=== PATIENT | male | born 1955 | race Caucasian/White ===

== ENCOUNTER 2018-03-03 09:14 | Emergency (ER) | payer OTHER ==
[~2018-03-03] VITALS: Ht 185.4 cm; Wt 77.1 kg
[2018-03-03 09:23] VITALS: BP 140/80
--- NOTE | 2018-03-03 09:53 | NUR ---
Dr. De La Vega evaluating patient at bedside.
--- NOTE | 2018-03-03 09:59 | NUR ---
patient came in for a medication refill for gabbapentin for chronic pain to lower back. patient has a history of untreated Hep. C, HTN and smoking. pt stated that he has been obor for a long time. Pt is currently taking ibuprofin, gabbapentin, HCTZ, benazpril and renatidine and tramadol. pt statedd that he was on pain management but just moved out here. Addendum: 03/03/18 at 1001 by MED1 patient came in for a medication refill for gabbapentin for chronic pain to lower back. patient has a history of untreated Hep. C, HTN and smoking. pt stated that he has been sobor for a long time. Pt is currently taking ibuprofin, gabbapentin, HCTZ, benazpril and renatidine and tramadol. pt stated that he was on pain management but just moved out here.
[2018-03-03 10:38] VITALS: BP 128/84
--- NOTE | 2018-03-03 10:39 | NUR ---
patient was discharged and was given medication prescription for chronic back pain. patient recieved prescription for tramadol and gabapentin. patient recieved literature on chronic pain management. patient understood in home care instructions and medication prescriptions. patient was d/c ambulatory.
== END 2018-03-03 10:39 | disposition home or self-care (01) ==
LOC: MED 09:14
DX: G89.29 Other chronic pain (principal); Z76.0 Encounter for issue of repeat prescription
CPT/HCPCS: 99283

== ENCOUNTER 2018-04-06 10:01 | Emergency (ER) | payer OTHER ==
[~2018-04-06] VITALS: Ht 185.4 cm; Wt 79.4 kg
[2018-04-06 10:06] VITALS: BP 142/95
--- NOTE | 2018-04-06 10:11 | NUR ---
PT AMBULATES TO BED 9
--- NOTE | 2018-04-06 10:20 | NUR ---
PATIENT PRESENTS TO ED WITH C/O LOWER BACK PAIN AND LT LOWER EXTREMITY PAIN;SWELLING AND REDNESS NOTED ON LT LOWER EXTREMITY.DENIES N/V/D; SKIN IS PINK/WARM/DRY; AAOX4 WITH EVEN AND STEADY GAIT; LUNGS CLEAR BL; HR EVEN AND REGULAR; PT DENIES ANY FEVER, CP, SOB, OR COUGH AT THIS TIME; PATIENT POSITIONED FOR COMFORT; HOB ELEVATED; BEDRAILS UP X2; BED DOWN. ER MD MADE AWARE OF PT STATUS.
[2018-04-06] MEDS ORDERED: KETOROLAC 30 MG/ML VIAL IM ONE (10:40)
[2018-04-06 11:08] VITALS: BP 138/89
--- NOTE | 2018-04-06 11:09 | NUR ---
Patient discharged with v/s stable. Written and verbal after care instructions given and explained. Patient alert, oriented and verbalized understanding of instructions. Ambulatory with steady gait. All questions addressed prior to discharge. ID band removed. Patient advised to follow up with PMD. Rx of TRAMADOL, MEDROL, MOTRIN given. Patient educated on indication of medication including possible reaction and side effects. Opportunity to ask questions provided and answered.
== END 2018-04-06 11:09 | disposition home or self-care (01) ==
LOC: MED 10:01
DX: G89.29 Other chronic pain (principal); M54.32 Sciatica, left side; Z76.0 Encounter for issue of repeat prescription; I10 Essential (primary) hypertension; Z98.890 Other specified postprocedural states
CPT/HCPCS: 96372; 99283; J1885

== ENCOUNTER 2018-06-01 08:59 | Emergency (ER) | payer MEDICAID, OTHER ==
[~2018-06-01] VITALS: Ht 185.4 cm; Wt 77.1 kg
[2018-06-01 09:02] VITALS: BP 109/84
[2018-06-01 09:31] VITALS: BP 109/84
== END 2018-06-01 09:31 | disposition home or self-care (01) ==
LOC: MED 08:59
DX: H61.21 Impacted cerumen, right ear (principal); I10 Essential (primary) hypertension; F17.210 Nicotine dependence, cigarettes, uncomplicated
CPT/HCPCS: 99281

== ENCOUNTER 2018-10-24 11:02 | Emergency (ER) | payer MEDICAID, OTHER ==
[~2018-10-24] VITALS: Ht 185.4 cm; Wt 78.2 kg
[2018-10-24 11:25] VITALS: BP 115/81
--- NOTE | 2018-10-24 12:30 | NUR ---
FLU A&B SWAB SAMPLE TAKEN AND GIVEN TO COLLAR SEPARATOR PER DR ESTRADA'S ORDER. [facility]
--- NOTE | 2018-10-24 12:43 | NUR ---
PT TO BED 3 AT THIS TIME.
--- NOTE | 2018-10-24 12:47 | NUR ---
63 Y/O M BIB HIS BEST FRIEND WITH C/O COUGH, CONGESTION AND WEAK FOR 2 DAYS. PT DENIES N/V/D; SKIN IS INTACT, PINK/WARM/DRY; AAOX4, PERRL, WITH EVEN AND STEADY GAIT; LUNGS CLEAR BL, BREATHING UNLABORED; HR EVEN AND REGULAR, BL PERIPHERAL PULSES PRESENT; BS ACTIVE X4, NO TENDERNESS TO PALPATION, NO HEPATOSPLENOMEGALLY PALPATED, RESONANT TO PERCUSSION; PT DENIES ANY FEVER, CP, SOB AT THIS TIME; PT STATES 6/10 PAIN AT THIS TIME; VSS; PATIENT POSITIONED FOR COMFORT; HOB ELEVATED; BEDRAILS UP X2; BED DOWN. HX; HTN-- RX; HYDROCHLOROTHIAZIDE, BAGAPENTIN, NAPROXYN
--- NOTE | 2018-10-24 14:21 | NUR ---
PT SITTING IN BED WITH LEGS UNCROSSED, RR EVEN/UNLABORD. NO DISTRESS NOTED.
--- NOTE | 2018-10-24 15:05 | NUR ---
DR. ESTRADA AT BEDSIDE EVALUATING.
[2018-10-24 15:27] VITALS: BP 112/85
--- NOTE | 2018-10-24 15:27 | NUR ---
Patient discharged with v/s stable. Written and verbal after care instructions given and explained. Patient alert, oriented and verbalized understanding of instructions. Ambulatory with steady gait. All questions addressed prior to discharge. ID band removed. Patient advised to follow up with PMD. Rx of PREDNISONE, MOTRIN WERE given. Patient educated on indication of medication including possible reaction and side effects. Opportunity to ask questions provided and answered.
== END 2018-10-24 15:27 | disposition home or self-care (01) ==
LOC: MED 11:02
DX: R05 Cough (principal); I10 Essential (primary) hypertension
CPT/HCPCS: 36415; 71046; 87804; 99284

== ENCOUNTER 2018-11-05 15:41 | Emergency (ER) | payer OTHER ==
[~2018-11-05] VITALS: Ht 188 cm; Wt 80.8 kg
[2018-11-05 15:50] VITALS: BP 120/84
--- NOTE | 2018-11-05 15:53 | NUR ---
PATIENT PRESENTS TO ED WITH C/O LEFT FOOT PAIN; ABSCESS NOTED ON LEFT FOOT; RENDESS AND MILD SWELLING NOTED. PT STATES FOOT IS NUMB AND HE HAS ALWAYS APROBLEM WITH HIS LEFT FOOT;AAOX4 WITH EVEN AND STEADY GAIT; LUNGS CLEAR BL; HR EVEN AND REGULAR; PT DENIES ANY FEVER;PATIENT STATES PAIN OF 7/10 AT THIS TIME;PATIENT POSITIONED FOR COMFORT; HOB ELEVATED; BEDRAILS UP X2; BED DOWN. ER MD MADE AWARE OF PT STATUS.
--- NOTE | 2018-11-05 16:03 | NUR ---
LEONILA MAYER AT BEDSIDE.
[2018-11-05] MEDS ORDERED: CLINDAMYCIN 150 MG CAP PO ONE (16:15)
[2018-11-05] MEDS ORDERED: SULFAMETH/TRIMETH DS 800/160MG 1 TAB PO ONE (16:15)
[2018-11-05 16:40] VITALS: BP 120/84
--- NOTE | 2018-11-05 16:40 | NUR ---
Patient discharged with v/s stable. Written and verbal after care instructions given and explained. Patient alert, oriented and verbalized understanding of instructions. Ambulatory with steady gait. All questions addressed prior to discharge. ID band removed. Patient advised to follow up with PMD. Rx of BACTRIM DS AND CLINDAMYCIN given. Patient educated on indication of medication including possible reaction and side effects. Opportunity to ask questions provided and answered.
== END 2018-11-05 16:40 | disposition home or self-care (01) ==
LOC: MED 15:41
DX: L03.116 Cellulitis of left lower limb (principal); I10 Essential (primary) hypertension
CPT/HCPCS: 99283

== ENCOUNTER 2019-01-07 10:10 | Emergency (ER) | payer OTHER ==
[~2019-01-07] VITALS: Ht 185.4 cm; Wt 79.4 kg
[2019-01-07 10:14] VITALS: BP 127/96
--- NOTE | 2019-01-07 10:22 | NUR ---
Patient ambulated to bed 12. RN evaluating patient at bedside.
--- NOTE | 2019-01-07 10:29 | NUR ---
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 DENIES N/V/D; SKIN IS PINK/WARM/DRY; AAOX4 WITH EVEN AND STEADY GAIT; LUNGS CLEAR BL; HR EVEN AND REGULAR; PT DENIES ANY FEVER, CP, SOB, OR COUGH AT THIS TIME; PATIENT STATES PAIN OF 0/10 AT THIS TIME; VSS; PATIENT POSITIONED FOR COMFORT; HOB ELEVATED; BEDRAILS UP X2; BED DOWN. ER MD MADE AWARE OF PT STATUS.
[2019-01-07] MEDS ORDERED: NACL 0.9% 1,500 ML IV SCH (11:21)
[2019-01-07 12:07] LABS: BASOPHILS % (AUTO) 0.5 % (0.0-2.0); EOSINOPHILS % (AUTO) 1.5 % (0.0-4.0); HEMATOCRIT 35.8 % (36-52); HEMOGLOBIN 12.1 g/dL (12.0-18.0); LYMPHOCYTES # (AUTO) 1.4 K/uL (2.0-11.5); LYMPHOCYTES % (AUTO) 43.8 % (20.5-51.1); MEAN CORPUSCULAR HEMOGLOBIN 33 pg (27-31); MEAN CORPUSCULAR HGB CONC 34 g/dL (33-37); MEAN CORPUSCULAR VOLUME 96.5 fL (80-94); MONOCYTES # (AUTO) 0.2 K/uL (0.8-1.0); MONOCYTES % (AUTO) 6.6 % (1.7-9.3); NEUTROPHILS # (AUTO) 1.5 K/uL (1.8-7.7); NEUTROPHILS % (AUTO) 47.6 % (42.2-75.2); PLATELET COUNT (AUTO) 219 K/uL (140-450); RED BLOOD CELL COUNT(AUTO) 3.71 MIL/uL (4.20-6.10); WHITE BLOOD COUNT (AUTO) 3.2 K/uL (4.8-10.8)
[2019-01-07 12:18] LABS: ANION GAP 15.1 (8-16); CARBON DIOXIDE 24.8 mmol/L (21-32); POTASSIUM 3.9 mmol/L (3.5-5.1)
[2019-01-07 12:30] LABS: TOTAL BILIRUBIN 0.4 mg/dL (0.0-1.0)
[2019-01-07 12:36] LABS: MAGNESIUM 1.9 mg/dL (1.8-2.4); URIC ACID 5.1 mg/dL (2.6-7.2)
[2019-01-07 14:15] LABS: BARBITURATE, URINE NEG. ng/ml (NEG <=200); BENZODIAZEPINE, URINE NEG. ng/mL (NEG <=200); CANNABINOID, URINE POS. ng/mL (NEG <=50); COCAINE, URINE NEG. ng/mL (NEG <=300); OPIATE, URINE NEG. ng/mL (NEG <=2000); PHENCYCLIDINE SCREEN,URINE NEG. ng/mL (NEG <=25)
[2019-01-07 14:17] LABS: APPEARANCE,URINE CLEAR (CLEAR); BILIRUBIN,URINE NEGATIVE (NEGATIVE); BLOOD, URINE NEGATIVE (NEGATIVE); COLOR,URINE YELLOW (YELLOW); LEUKOCYTE ESTERASE ,URINE NEGATIVE (NEGATIVE); NITRITE, URINE NEGATIVE (NEGATIVE); PH,URINE 6.5 (5.0-9.0); UGLUCOSE NEGATIVE (NEGATIVE)
[2019-01-07 14:55] VITALS: BP 112/58
--- NOTE | 2019-01-07 14:55 | NUR ---
Patient discharged with v/s stable. Written and verbal after care instructions given and explained. Patient alert, oriented and verbalized understanding of instructions. Ambulatory with steady gait. All questions addressed prior to discharge. Patient advised to follow up with PMD. Rx of Albuterol given. Patient educated on indication of medication including possible reaction and side effects. Opportunity to ask questions provided and answered.
== END 2019-01-07 14:45 | disposition home or self-care (01) ==
LOC: MED 10:10
DX: E86.0 Dehydration (principal); J44.9 Chronic obstructive pulmonary disease, unspecified; J98.11 Atelectasis; F17.210 Nicotine dependence, cigarettes, uncomplicated; I10 Essential (primary) hypertension
CPT/HCPCS: 36415; 36600; 71045; 80053; 80305; 81003; 82803; 83735; 83880; 84484; 84550; 85025; 93005; 96360; 99284; G0482; J7030; Q0092

== ENCOUNTER 2019-07-19 11:50 | Emergency (ER) | payer OTHER ==
[~2019-07-19] VITALS: Ht 185.4 cm; Wt 79.4 kg
[2019-07-19 11:51] VITALS: BP 119/70
[2019-07-19] MEDS ORDERED: KETOROLAC 60 MG/2 ML VIAL IM ONE (12:00)
--- NOTE | 2019-07-19 12:00 | NUR ---
Patient transferred to bed 4 via wheelchair by triage nurse. RN evaluating patient at bedside.
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
--- NOTE | 2019-07-19 12:05 | NUR ---
technical buyer at bedside.
--- NOTE | 2019-07-19 12:22 | NUR ---
Dr. Capps evaluating patient at bedside.
--- NOTE | 2019-07-19 12:39 | NUR ---
PATIENT STATED THE PAIN MEDICATION DID NOT WORK, STILL HARD TO WORK, ER MD MADE AWARE.
[2019-07-19 12:55] VITALS: BP 119/70
--- NOTE | 2019-07-19 12:55 | NUR ---
Patient discharged with v/s stable. Written and verbal after care instructions given and explained. Rx of KEFLEX given. Patient educated on indication of medication including possible reaction and side effects. All questions addressed prior to discharge. ID band removed. Patient advised to follow up with PMD.
== END 2019-07-19 12:55 | disposition home or self-care (01) ==
LOC: MED 11:50
DX: L03.116 Cellulitis of left lower limb (principal); I10 Essential (primary) hypertension; F17.200 Nicotine dependence, unspecified, uncomplicated; Z98.890 Other specified postprocedural states
CPT/HCPCS: 73630; 96372; 99283; J1885; Q0092

== ENCOUNTER 2019-08-01 16:48 | Emergency (ER) | payer OTHER ==
[~2019-08-01] VITALS: Ht 185.4 cm; Wt 79.4 kg
[2019-08-01 16:59] VITALS: BP 108/63
--- NOTE | 2019-08-01 18:28 | NUR ---
Patient to chair B via wheelchair. RN evaluating patient.
--- NOTE | 2019-08-01 18:39 | NUR ---
PT BIB SELF FOR WOUND THAT IS NOT HEALING TO LEFT HEAL X1 MONTH. PT STATES HE WAS SEEN AT [facility] FOR SAME S//S AND GIVEN ABX BUT WOUND DID NOT HEAL. OPEN WOUND NOTED TO HEEL, NO ACTIVE BLEEDING, NO DRAINAGE, WOUND BED IS PINK AND EDGES WELL APPROXIMATED.
[2019-08-01] MEDS ORDERED: KETOROLAC 60 MG/2 ML VIAL IM ONE (18:45)
[2019-08-01 19:29] VITALS: BP 112/63
--- NOTE | 2019-08-01 19:29 | NUR ---
Patient discharged with v/s stable. Written and verbal after care instructions given and explained. Patient alert, oriented and verbalized understanding of instructions. Wheel Chair Assisted with to car. All questions addressed prior to discharge. ID band removed. Patient advised to follow up with PMD. Rx of BACTRIM, KEFLEX, MOTRIN given. Patient educated on indication of medication including possible reaction and side effects. Opportunity to ask questions provided and answered.
== END 2019-08-01 19:29 | disposition home or self-care (01) ==
LOC: MED 16:48
DX: S91.302A Unspecified open wound, left foot, initial encounter (principal); I10 Essential (primary) hypertension; X58.XXXA Exposure to other specified factors, initial encounter; Y92.89 Other specified places as the place of occurrence of the external cause; Y93.89 Activity, other specified; Y99.8 Other external cause status
CPT/HCPCS: 87070; 96372; 99283; J1885

== ENCOUNTER 2020-01-20 03:15 | Emergency (ER) | payer OTHER ==
[~2020-01-20] VITALS: Ht 188 cm; Wt 77.1 kg
[2020-01-20 03:20] VITALS: BP 81/54
--- NOTE | 2020-01-20 03:20 | NUR ---
PT NEGATIVE FOR COVID SCREEN. PT TRANSFERED TO BED VIA [facility].
--- NOTE | 2020-01-20 03:20 | NUR ---
BIBA TO BED 11
--- NOTE | 2020-01-20 03:23 | NUR ---
DR DENISE AT BEDSIDE EVALUATING PATIENT.
--- NOTE | 2020-01-20 03:30 | NUR ---
Note undone in EDM - 01/20/20 at 0434 by [facility] 64M PT BIBA JAYSON FOR DECREASED SENSATION IN BILAT UE AND LE X 1 HOUR. PT ALSO AHS 10/10 NECK PAIN. PT STATES MEMORY AND ABILITY TO AMBULATE HAS DECREASED OVER 1 MONTH. PT AAO TO PERSON AND PLACE. POOR HISTORIAN. NEGATIVE COVID SCREEN. PT IS A/O X 2 AND CONFUSED. HX: HTN, DM, CHRONIC NECK PAIN, DRUG ABUSE, HLD. RX: LOOK IN MED RECON. ALLX: DENIES.
--- NOTE | 2020-01-20 03:53 | NUR ---
BP LOW AT 89/50 ON LEFT. REDID ON RIGHT ARM AND READ 79/50. MANUAL BP PERFORMED ON R ARM AND READ 92/52
[2020-01-20] MEDS ORDERED: NACL 0.9% 2,000 ML IV ONE (03:58)
[2020-01-20 04:18] LABS: HEMATOCRIT 26.5 % (36-52); HEMOGLOBIN 8.6 g/dL (12.0-18.0); MEAN CORPUSCULAR HEMOGLOBIN 28 pg (27-31); MEAN CORPUSCULAR HGB CONC 33 g/dL (33-37); MEAN CORPUSCULAR VOLUME 86.8 fL (80-94); PLATELET COUNT (AUTO) 340 K/uL (140-450); RED BLOOD CELL COUNT(AUTO) 3.05 MIL/uL (4.20-6.10); RED CELL DISTRIBUTION WIDTH 19.3 % (11.6-13.7); WHITE BLOOD COUNT (AUTO) 18.9 K/uL (4.8-10.8)
[2020-01-20] MEDS ORDERED: CYCL10TA13 PO (04:29)
[2020-01-20] MEDS ORDERED: ORE25 PO (04:29)
[2020-01-20] MEDS ORDERED: [UNRECOGNIZED DRUG - CODE] PO (04:29)
[2020-01-20] MEDS ORDERED: GABA300C PO (04:29)
[2020-01-20] MEDS ORDERED: HYDR-5092 PO (04:29)
[2020-01-20] MEDS ORDERED: BENA40TA PO (04:29)
[2020-01-20] MEDS ORDERED: ATOR40TA PO (04:29)
[2020-01-20] MEDS ORDERED: METO25TE71 PO (04:29)
--- NOTE | 2020-01-20 04:30 | NUR ---
XR AT BEDSIDE.
[2020-01-20 04:32] LABS: LYMPHOCYTES % (MANUAL) 2 % (20-46); MONOCYTES % (MANUAL) 1 % (5-12)
[2020-01-20 04:38] LABS: ANION GAP 15.3 (8-16); CARBON DIOXIDE 27.7 mmol/L (21-32); TOTAL BILIRUBIN 0.4 mg/dL (0.0-1.0)
[2020-01-20 05:24] LABS: APPEARANCE,URINE CLEAR (CLEAR); BILIRUBIN,URINE 1+ (NEGATIVE); BLOOD, URINE NEGATIVE (NEGATIVE); COLOR,URINE YELLOW (YELLOW); LEUKOCYTE ESTERASE ,URINE NEGATIVE (NEGATIVE); NITRITE, URINE NEGATIVE (NEGATIVE); PH,URINE 5.5 (5.0-9.0); UGLUCOSE NEGATIVE (NEGATIVE)
[2020-01-20 05:38] LABS: BARBITURATE, URINE NEGATIVE ng/ml (NEG <=200); BENZODIAZEPINE, URINE NEGATIVE ng/mL (NEG <=200); CANNABINOID, URINE NEGATIVE ng/mL (NEG <=50); COCAINE, URINE NEGATIVE ng/mL (NEG <=300); OPIATE, URINE POSITIVE ng/mL (NEG <=2000); PHENCYCLIDINE SCREEN,URINE NEGATIVE ng/mL (NEG <=25)
[2020-01-20 05:41] LABS: RBC,URINE 0-5 /HPF (0-5); WBC,URINE 0-5 /HPF (0-5)
--- NOTE | 2020-01-20 05:41 | NUR ---
2L BOLUS FINISHED. NO FURTHER COMPLICATION. PT BP AT 88/62. BED LOWEST AND LOCKED, RAILS UP X 2. PT IN BED LAYING DOWN, HOB ELEVATED, AROUSABLE TO VOICE. RESPIRATIONS EVEN AND NO EFFORT NOTED.
[2020-01-20 05:42] LABS: HYALINE CASTS, URINE 0-10 /LPF (None Seen)
[2020-01-20] MEDS ORDERED: PIPERACILLIN/TAZOBACTAM 3.375 GM in DEXTROSE 5% 50 ML IV ONE (06:00)
[2020-01-20] MEDS ORDERED: ASPIRIN 325 MG TAB PO ONE (06:00)
[2020-01-20] MEDS ORDERED: NACL 0.9% 500 ML IV ONE (06:00)
--- NOTE | 2020-01-20 06:03 | NUR ---
PT OBSERVED TO BE ABLE TO MOVE THEIR ARMS WITH FULL ROM UPON ENTERING THEIR ROOM BUT SUDDENLY STOPPED MOVING THEIR ARMS TO SHOW THAT ITS WEAK ONCE APPROACHED. DOCTOR HOWIE NOTIFIED.
--- NOTE | 2020-01-20 06:04 | NUR ---
PT TAKEN TO CT
[2020-01-20] MEDS ORDERED: PIPERACILLIN/TAZOBACTAM 3.375 GM VIAL IV ONE (06:11)
--- NOTE | 2020-01-20 06:54 | NUR ---
L FA IV SITE EXTRAVASATED. RIGHT SIDE EXTERNAL JUGULAR 18 GAUGE PLACED AND PATENT
--- NOTE | 2020-01-20 07:18 | NUR ---
RECEIVED REPORT FROM JULISSA CURRY. TRANSFER OF CARE AT THIS TIME
[2020-01-20] MEDS ORDERED: VANCOMYCIN 1,000 MG in DEXTROSE 5% 250 ML IV ONE (07:50)
[2020-01-20] MEDS ORDERED: VANCOMYCIN 1,000 MG VIAL ONE (07:53)
--- NOTE | 2020-01-20 08:30 | NUR ---
consent signed by pt for ct with contrast
--- NOTE | 2020-01-20 08:37 | NUR ---
Pt transferred to CT via [facility].
--- NOTE | 2020-01-20 08:47 | NUR ---
spoke to pts son, would like a follow up with social sevices for his father. wants call with updates on pt. cassandra--
--- NOTE | 2020-01-20 10:01 | NUR ---
hob elevated, rr even and unlabored. no c/o pain at this time. remains on monitor. will continue to monitor
--- NOTE | 2020-01-20 10:13 | NUR ---
Report called to austin Heath at [place] at this time.
--- NOTE | 2020-01-20 10:34 | NUR ---
[facility] at bedside for transfer.
--- NOTE | 2020-01-20 10:35 | NUR ---
Patient to be transferred to [place]. Is being transferred due to higher level of care. Receiving facility has accepting physician and available space. ER physician has signed transfer form. Patient or responsible republican has agreed to transfer and signed form. Patient belongings inventoried and will be sent with patient. Copy of nursing notes, lab reports, EKG, Physicians Orders and X-rays to be sent with patient. Report called to austin Heath at receiving facility. [facility] ambulance service has been called for transfer. ETA is 30 min.
[2020-01-20 10:36] VITALS: BP 87/53
--- NOTE | 2020-01-20 10:38 | NUR ---
[facility]
== END 2020-01-20 10:35 | disposition short-term general hospital (02) ==
LOC: MED 03:15
DX: N28.9 Disorder of kidney and ureter, unspecified (principal); R79.89 Other specified abnormal findings of blood chemistry; E87.2 Acidosis; E86.0 Dehydration; R53.1 Weakness; I10 Essential (primary) hypertension; T82.898A Other specified complication of vascular prosthetic devices, implants and grafts, initial encounter; Z79.899 Other long term (current) drug therapy
CPT/HCPCS: 36415; 70450; 71045; 72125; 72126; 80053; 80305; 81001; 83605; 84484; 85025; 87040; 87186; 93005; 99285; G0482; J2543; J3370; J7030; Q0092; Q9967; 96365